=== PATIENT | female | born 1965 | race Caucasian/White ===

== ENCOUNTER 2022-01-17 13:27 | Emergency (ER) | payer OTHER, SELFPAY ==
[2022-01-17 13:53] VITALS: TEMP 36.6; O2SAT 97
--- NOTE | 2022-01-17 14:09 | DI.RAD.S_ITS ---
PROCEDURE: XR FINGER LT MIN 2V INDICATIONS: laceration TECHNIQUE: AP hand, 2 views of the small finger(s) acquired. COMPARISON: None. FINDINGS: Bones: No fractures or dislocations. No suspicious bony lesions. Soft tissues: No suspicious soft tissue calcifications. No radiopaque foreign bodies. No soft tissue gas. IMPRESSION: No evidence of acute bony abnormality of the small finger of the left hand. Dictated by: Narendra Akhtar M.D. on 01/17/2022 at 19:41 Approved by: Narendra Akhtar M.D. on 01/17/2022 at 19:42
[2022-01-17 19:43] VITALS: BP 134/81; PULSE 69; RESP 18; O2SAT 98
--- NOTE | 2022-01-17 20:15 | ED_ITS ---
HPI - Wound/Laceration General Chief Complaint: Wound/Laceration Stated Complaint: cut pinky finger cooking Time Seen by Provider: 01/17/22 20:11 Source: patient Mode of arrival: Ambulatory Limitations: no limitations History of Present Illness HPI narrative: Patient is a 56-year-old right-hand dominant female who is here for evaluation of a cut to her left little finger. She states she was cooking earlier today when she cut the finger with a knife. She states she has some difficulty with bending the finger. She is up-to-date on her tetanus. It was washed out prior to arrival. Related Data Home Medications Medication Instructions Recorded Confirmed No Known Home Medications 01/17/22 01/17/22 Allergies Allergy/AdvReac Type Severity Reaction Status Date / Time No Known Drug Allergies Allergy Verified 01/17/22 14:01 Review of Systems Constitutional Constitutional: Reports system reviewed and no additional complaints, except as documented Musculoskeletal Musculoskeletal: Reports system reviewed and no additional complaints, except as documented Integumentary/Breasts Skin/Breast: Reports system reviewed and no additional complaints, except as documented Neurologic Neurologic: Reports system reviewed and no additional complaints, except as documented Hematologic/Lymphatic On Anticoagulants: No Patient History Medical History Healthy adult Social History Smoking Status: Never smoker Smoking Status: Never smoker alcohol intake frequency: 0-2 drinks per day Substance Use Type: does not use Exam Initial Vital Signs Initial Vital Signs: Vital Signs Temperature 97.9 F 01/17/22 13:53 Pulse Oximetry 97 01/17/22 13:53 Oxygen Delivery Method 01/17/22 13:53 Const General: cooperative and comfortable Cardio Pulses: radial pulses present on the left Skin Other: 1 cm laceration volar aspect of left little finger just over the PIP joint Neuro Other: Patient does report tingling to the distal aspect of the left little finger Extrem Other: Laceration volar aspect left little finger. She is able to flex and extend at the MCP and PIP joint. However is unable to flex at the D IP joint. Procedures Laceration Repair Laceration 1: Site: other (Left little finger) Size (cm): 1 Description: linear Depth: simple, single layer and involves tendon Local Anesthetic: lidocaine 1% Amount of anesthesia used (mL): 2 Pre-repair: wound explored and irrigated extensively Skin layer closed with: nylon Skin layer suture size: 5-0 Number of sutures: 3 Technique: simple, interrupted Orthopedic Splinting/Casting Injury #1: Side: left Upper Extremity Injury Location: finger Upper Extremity Immobilizer: aluminum form splint Post splinting neuro exam: no change Post splinting vascular exam: no change Placed by: Nursing Course Orders Ordered: Discontinued Medications Lidocaine HCl (Lidocaine 1% (Pf)) 2 ml INJ NOW ONE Stop: 01/17/22 20:19 Last Admin: 01/17/22 20:20 Dose: 2 ml Documented By: NITESH Lidocaine/Sodium Bicarbonate (Lido 1%/Sod Bicarb 8.4% (10ml) 10 Ml Syringe) 10 ml INJ NOW ONE Stop: 01/17/22 20:15 Last Admin: 01/17/22 20:17 Dose: Not Given Documented By: NITESH Vital Signs Vital signs: Vital Signs - 8 hr 01/17/22 19:43 01/17/22 21:07 Pulse Rate 69 64 Respiratory Rate 18 16 Blood Pressure 134/81 124/58 L Pulse Oximetry 98 99 Oxygen Delivery Method Room Air Room Air MDM - Wound/Laceration Imaging Data Extremity x-ray #1: Radiologist's Impression: [place] [address] XRay Report Signed Patient: Roselia Yadav MR#: [id number] : 1965 Acct:[id number] Age/Sex: 56 / F Date of Service: 01/17/22 Loc: ED Accession Number: [id number] ?? Procedure: XR finger LT min 2V Ordering Provider: Sharlene Corona D.O. PROCEDURE:? XR FINGER LT MIN 2V ? INDICATIONS:? laceration ? TECHNIQUE:? AP hand, 2 views of the small finger(s) acquired.? ? COMPARISON:? None. ? FINDINGS:? ? Bones:? No fractures or dislocations.? No suspicious bony lesions.? ? Soft tissues:? No suspicious soft tissue calcifications.? No radiopaque foreign bodies.? No soft tissue gas.? ? IMPRESSION:? No evidence of acute bony abnormality of the small finger of the left hand. ? ? Dictated by: Narendra Akhtar M.D. on 01/17/2022 at 19:41 ? ? Approved by: Narendra Akhtar M.D. on 01/17/2022 at 19:42?? MDM Narrative Medical decision making narrative: Patient is up-to-date on tetanus. Given her exam I do have concern about flexor tendon injury. I did discuss the case with Dr. Tucker with orthopedics. Wound was closed as described above and splinted. Will have the patient contact the orthopedic office on Wednesday for a follow-up. She was given care instructions and return precautions. She expressed understanding and agreement. Discharge Plan Departure Patient Disposition: Home Clinical Impression: Laceration Instructions: DI for Laceration Repair Activity Restrictions/Additional Instructions: There is some concern that you have injured the tendon of your left little finger. The splint that was placed today does need to stay on. You need to keep it clean and keep it dry. On Wednesday morning contact the orthopedic doctors at the number provided below for a follow-up. I provided you the information for Dr. Tucker however you may actually see Dr. Menard. Return to the emergency department for any new or worsening symptoms. Prescriptions: No Action No Known Home Medications Referrals: Alina Tucker MD [Physician] - Visit Report Forms: Patient Portal/API
[2022-01-17] MEDS: LIDOCAINE 1% (PF) 2 ML INJ (20:20)
--- NOTE | 2022-01-17 20:20 | PC.NURSE ---
lidocaine administered by Dr Cintron
[2022-01-17 21:07] VITALS: BP 124/58; PULSE 64; RESP 16; O2SAT 99
== END 2022-01-17 21:16 | disposition home or self-care (01) ==
PROVIDERS: Emergency Provider Emergency Medicine
DX: S61.217A Laceration without foreign body of left little finger without damage to nail, initial encounter (principal); W26.0XXA Contact with knife, initial encounter
CPT/HCPCS: 12001; 73140; 99283